=== PATIENT | female | born 1950 | race Two or more races ===

== ENCOUNTER 2018-08-15 15:26 | Outpatient (CLI) | payer OTHER | END 2018-08-15 18:00 | disposition home or self-care (01) | LOC: RAD 15:26 | DX: Z12.31 Encounter for screening mammogram for malignant neoplasm of breast (principal); Z87.898 Personal history of other specified conditions; N64.4 Mastodynia; N63.10 Unspecified lump in the right breast, unspecified quadrant; N63.20 Unspecified lump in the left breast, unspecified quadrant; R07.89 Other chest pain; M75.101 Unspecified rotator cuff tear or rupture of right shoulder, not specified as traumatic; M54.89 Other dorsalgia ==

== ENCOUNTER 2019-03-22 19:19 | Emergency (ER) | payer OTHER ==
[~2019-03-22] VITALS: Ht 162.6 cm; Wt 72.6 kg
[2019-03-22] MEDS ORDERED: COZAAR25 MG (19:23)
[2019-03-22] MEDS ORDERED: ATORVASTATIN CA10 MG (19:23)
== END 2019-03-22 22:32 | disposition home or self-care (01) ==
LOC: ER 19:19
DX: M25.561 Pain in right knee (principal)